=== PATIENT | female | born 1990 | race Caucasian/White ===

== ENCOUNTER 2017-01-14 12:54 | Emergency (ER) | payer OTHER ==
[~2017-01-14] VITALS: Ht 162.6 cm; Wt 69.3 kg
[~2017-01-14 12:54] MED LIST: BIRTH CONTROL
[2017-01-14 13:41] LABS: HEMOGLOBIN 14.1 g/dL (11.7-16.4)
[2017-01-14 13:52] LABS: ASPARTATE AMINO TRANSFERASE 8 U/L (15-37); BLOOD UREA NITROGEN 12 mg/dL (7-18)
[2017-01-14 15:12] VITALS: BP 101/48
== END 2017-01-14 15:15 | disposition home or self-care (01) ==
LOC: ED 14:51
DX: R10.13 Epigastric pain (principal); R11.2 Nausea with vomiting, unspecified; R19.7 Diarrhea, unspecified
CPT/HCPCS: 36415; 76700; 80053; 83690; 84703; 85025; 99285

== ENCOUNTER 2017-04-11 22:11 | Emergency (ER) | payer OTHER ==
[~2017-04-11] VITALS: Ht 162.6 cm; Wt 70.3 kg
[2017-04-11 22:30] VITALS: BP 113/74
== END 2017-04-11 23:57 | disposition home or self-care (01) ==
LOC: ED 23:55
DX: K02.9 Dental caries, unspecified (principal); K08.89 Other specified disorders of teeth and supporting structures
CPT/HCPCS: 99281; 99282

== ENCOUNTER 2017-05-21 09:12 | Emergency (ER) | payer OTHER ==
[~2017-05-21] VITALS: Ht 162.6 cm; Wt 68.0 kg
[2017-05-21 09:22] VITALS: BP 121/69
== END 2017-05-21 10:19 | disposition home or self-care (01) ==
LOC: ED 10:12
DX: N39.0 Urinary tract infection, site not specified (principal)
CPT/HCPCS: 99283